=== PATIENT | female | born 2000 | race Caucasian/White ===

== ENCOUNTER 2020-06-02 20:11 | Emergency (ER) | payer MEDICAID, SELFPAY ==
[2020-06-02 20:12] VITALS: BP 146/88; PULSE 103; RESP 14; TEMP 36.7; O2SAT 100; BMI 37.1
--- NOTE | 2020-06-02 20:29 | CT_ITS ---
PROCEDURE: CT ABDOMEN PELVIS W CON CLINICAL INDICATION: abd pain Right lower quadrant pain with nausea and diarrhea COMPARISON: No exams were available for comparison TECHNIQUE: IV Contrast: 75ML Isovue 370 Oral Contrast None Axial images obtained with sagittal and coronal reformats. All CT scans at the facility use one or more dose reduction, viz: automated exposure control, ma/kV adjustment per patient size (including targeted exams where dose is matched to indication, i.e. head), or iterative reconstruction technique. FINDINGS: LOWER THORAX: No acute finding ABDOMEN & PELVIS: Prior cholecystectomy. The liver, spleen, adrenal glands, pancreas and kidneys have an unremarkable appearance. No evidence of appendicitis. There are few small mesenteric and right lower quadrant lymph nodes which are nonspecific. No renal or ureteral calculi. No hydronephrosis. No intestinal obstruction or free air. No pelvic mass or abnormal fluid collection. There is mild asymmetry in the ovaries with the right ovary measuring 4.5 by 2.6 cm containing small follicles. No acute bony findings. There is a sclerotic focus in the intertrochanteric region of the right femur possibly due to a bone island. IMPRESSION: 1. No evidence of appendicitis or obstructing ureteral calculus. 2. Nonspecific small mesenteric and right lower quadrant lymph nodes are present which could be seen with mesenteric adenitis. 3. Mild asymmetric prominence of the right ovary which may be better evaluated with pelvic ultrasound. Dictated by: Bony Redding MD 06/03/2020 06:43 Bony Redding MD in [place] 06/03/2020 06:43
[2020-06-02 20:38] LABS: Microscopic, Urine URINE MICROSCOPIC (MICROSCOPIC)
[2020-06-02 20:44] LABS: Appearance,Urine CLEAR (Clear); Blood, Urine Negative (Negative); Color,Urine YELLOW (Yellow); Glucose,Urine (UA) Negative (Negative); Ketones,Urine Negative (Negative); Leukocyte Esterase,Urine Negative (Negative); Nitrate,Urine Negative (Negative); PH,Urine 5.5 (5.0-8.5); Protein,Urine Negative (Negative); Specific Gravity, Urine >= 1.030 (1.005-1.030); Urobilinogen,Urine 0.2 EU/dl (0.2)
[2020-06-02 20:47] LABS: Basophils # 0.1 K/mm3 (0-0.2); Basophils % 0.4 % (0.1-2.0); Eosinophils # 0.1 K/mm3 (0.0-0.4); Eosinophils % 0.8 % (0.1-12.0); Hematocrit 42.1 % (37.0-47.0); Hemoglobin 13.8 g/dL (12.2-16.2); Lymphocytes # 3.5 K/mm3 (0.7-4.5); Lymphocytes % 28.1 % (10-50); Mean Corpuscular HGB Conc 32.7 g/dL (31.8-35.4); Mean Corpuscular Hemoglobin 27.3 pg (27.0-31.2); Mean Corpuscular Volume 83.7 fl (81-99); Mean Platelet Volume 7.7 fl (7.4-10.4); Monocytes # 0.8 K/mm3 (0.1-1.0); Neutrophils # 8.1 K/mm3 (1.8-7.8); Neutrophils % 64.7 % (37.0-80.0); Platelet Count 337 K/mm3 (142-424); Red Blood Count 5.04 M/mm3 (4.20-5.40); White Blood Count 12.5 K/mm3 (4.8-10.8)
[2020-06-02 20:52] VITALS: PULSE 103; O2SAT 100
[2020-06-02 20:52] LABS: Alanine Aminotransferase 32 U/L (12-78); Albumin Level 4.9 g/dl (3.5-5.0); Albumin/Globulin Ratio 1.2 (1.1-1.8); Alkaline Phosphatase 111 U/L (38-126); Amylase 76 U/L (30-110); Anion Gap 18.2 mEq/L (5-15); Aspartate Amino Transferase 37 U/L (14-36); Bilirubin,Total 0.5 mg/dl (0.2-1.3); Blood Urea Nitrogen 8 mg/dl (7-17); Calcium 9.8 mg/dl (8.4-10.2); Carbon Dioxide 23 mmol/L (22.0-30.0); Chloride 104 mmol/L (98-107); Creatinine Clearance Estimated 209 mL/min (50-200); Estimated Glomerular Filt Rate 106 ml/min (>60); GFR (African American) 128 ML/MIN (>60); Globulin 4.2 g/dL (1.3-3.2); Glucose 87 mg/dl (74-100); Lipase 139 U/L (23-300); Potassium 4.2 mmoL/L (3.5-5.1); Sodium 141 mmol/L (136-145); Total Protein,Serum 9.1 g/dl (6.3-8.2); Urine Pregnancy, HCG Qual. Negative (Negative)
[2020-06-02 20:55] LABS: Bilirubin,Urine Negative (Negative)
[2020-06-02 20:57] LABS: C-Reactive Protein 12.7 mg/L (0-4)
[2020-06-02 21:00] VITALS: BP 109/61; PULSE 104; O2SAT 100
--- NOTE | 2020-06-02 21:02 | HMH.EDNVD ---
ED Disposition Clinical Impression: Abdominal pain Qualifiers: Abdominal location: right lower quadrant Qualified Code(s): R10.31 - Right lower quadrant pain Disposition: Home, Self-Care Condition on Discharge: Good Instructions: DI for Acute Abdominal Pain Additional Instructions: fluids and see pcp for follow up Referrals: Barbara Iglesias PA [Primary Care Provider] - - Critical Care Critical Care Time: No Attestation: On 06/02/20, the high probability of a clinically significant, sudden or life threatening deterioration of the following system(s) required my full and direct attention, intervention and personal management. The time I documented below is in addition to time spent performing reported procedures but includes the following listed in this critical care notation. Medical Decision Making - Medical Records Medical records reviewed: Yes: I reviewed the patient's medical records. - Robert Inquiry Pt receiving controlled substance: No Vital Signs: 06/02/20 20:12 06/02/20 20:52 06/02/20 21:00 Temperature 98.1 F Temperature Source Oral Pulse Rate 103 H 104 H Pulse Rate [Left Radial] 103 H Respiratory Rate 14 Blood Pressure 109/61 L Blood Pressure [Right Arm] 146/88 H Blood Pressure Mean 77 Blood Pressure Mean [Right Arm] 107 Blood Pressure Source Blood Pressure Source [Right Arm] Automatic Cuff Blood Pressure Position Blood Pressure Position [Right Arm] Sitting 02 Sat by Pulse Oximetry 100 100 100 Oxygen Delivery Method Room Air 06/02/20 22:11 Temperature Temperature Source Pulse Rate 95 H Pulse Rate [Left Radial] Respiratory Rate 14 Blood Pressure 102/66 L Blood Pressure [Right Arm] Blood Pressure Mean Blood Pressure Mean [Right Arm] Blood Pressure Source Automatic Cuff Blood Pressure Source [Right Arm] Blood Pressure Position Supine Blood Pressure Position [Right Arm] 02 Sat by Pulse Oximetry 99 Oxygen Delivery Method Room Air - Lab Data Lab results reviewed: Yes: I reviewed the patient's lab results. Lab Results 06/02/20 20:20: Urine Color Yellow, Urine Appearance Clear, Urine pH 5.5, Ur Specific [place] >= 1.030, Urine Protein Negative, Urine Glucose (UA) Negative, Urine Ketones Negative, Urine Blood Negative, Urine Nitrate Negative, Urine Bilirubin Negative, Urine Urobilinogen 0.2, Ur Leukocyte Esterase Negative, Urine WBC Occasional, Ur Squamous Epith Cells 3-5, Urine Bacteria 1+ 06/02/20 20:20: WBC 12.5 H, RBC 5.04, Hgb 13.8, Hct 42.1, MCV 83.7, MCH 27.3, MCHC 32.7, RDW 14.0, Plt Count 337, MPV 7.7, Neut % (Auto) 64.7, Lymph % (Auto) 28.1, Henry % (Auto) 6.0, Eos % (Auto) 0.8, Baso % (Auto) 0.4, Neut # (Auto) 8.1 H, Lymph # (Auto) 3.5, Henry # (Auto) 0.8, Eos # (Auto) 0.1, Baso # (Auto) 0.1, ESR 66 H 06/02/20 20:20: Urine HCG, Qual Negative 06/02/20 20:20: Sodium 141, Potassium 4.2, Chloride 104, Carbon Dioxide 23, Anion Gap 18.2 H, BUN 8, Creatinine 0.70, Estimated Creat Clear 209, Estimated GFR 106, Est GFR ( Amer) 128, Glucose 87, Calcium 9.8, Total Bilirubin 0.5, AST 37 H, ALT 32, Alkaline Phosphatase 111, C-Reactive Protein 12.7 H, Total Protein 9.1 H, Albumin 4.9, Globulin 4.2 H, Albumin/Globulin Ratio 1.2, Amylase 76, Lipase 139, Procalcitonin < 0.030 Result diagrams: 06/02/20 20:20 06/02/20 20:20 Orders (Tests/Meds): ED MEDICATIONS Generic Name Dose Route Start Last Admin Trade Name Freq PRN Reason Stop Dose Admin Sodium Chloride 1,000 mls @ 999 mls/hr 06/02/20 20:30 06/02/20 20:47 Sod Chlor 0.9% 1000ml Bag IV 06/02/20 21:30 999 mls/hr .Q1H1M MEGHA Administration Discontinued Medications Generic Name Dose Route Start Last Admin Trade Name Freq PRN Reason Stop Dose Admin Iopamidol 75 ml 06/02/20 21:20 06/02/20 21:21 Iopamidol-370 (76%);100ml Bottle IV 06/02/20 21:21 75 ml ONCE ONE Administration Ketorolac Tromethamine 30 mg 06/02/20 20:29 06/02/20 20:58 Ketorolac 30mg/Ml Vial IV 06/02
[2020-06-02 21:12] LABS: Procalcitonin < 0.030 ng/mL (0.0-2.0)
[2020-06-02 21:33] LABS: Bacteria,Urine 1+ /lpf; WBC,Urine Occasional #/hpf (0-3)
[2020-06-02 21:49] LABS: Erythrocyte Sedimentation Rate 66 mm/hr (0-20)
[2020-06-02 22:11] VITALS: BP 102/66; PULSE 95; RESP 14; O2SAT 99
[2020-06-02 22:37] VITALS: BP 146/92; PULSE 88; RESP 14; TEMP 36.6; O2SAT 99
== END 2020-06-02 22:49 | disposition home or self-care (01) ==
PROVIDERS: Emergency Provider Emergency Medicine; PCP Physician Assistant
DX: R10.31 Right lower quadrant pain (principal)
CPT/HCPCS: 74177; 80053; 81001; 81025; 82150; 83690; 84145; 85025; 85651; 86140; 96365; 96366; 99283; J2405; Q9967

== ENCOUNTER 2022-03-18 08:24 | Emergency (ER) | payer MEDICAID, SELFPAY ==
--- NOTE | 2022-03-18 08:58 | EXP.UTC ---
Discharge Plan Disposition Patient Disposition: Home, Self-Care Condition: Good Prescriptions Prescriptions: New amoxicillin [amoxicillin] 500 mg tablet 500 mg PO TID 10 Days Qty: 30 0RF sbubulzkhzqacqe-yjprsatqk-WC [Bromfed DM] 2-30-10 mg/5 mL Syrup 5 ml PO Q6H PRN (Reason: Cough) Qty: 240 0RF methylprednisolone 4 mg Tablets,Dose Pack 4 mg PO DIRECTED Qty: 21 0RF Referrals Follow up/Referrals: Provider,Referral, MD [Primary Care Provider] - See instructions Activity Restrictions/Add. Instructions Additional Instructions/Restrictions: Drink plenty of fluids. Take tylenol or ibuprofen for pain or fever. Take the medications as directed. Follow up with your regular doctor. GO TO THE ER FOR ANY WORSENING SYMPTOMS Clinical Impressions Clinical Impression: Strep throat Instructions Patient Instructions: Strep Throat, DI for Strep Throat Discharge ED Provider: Shon Braxton [facility] General Stated complaint: Sore throat Time Seen by Provider: 03/18/22 08:58 History of Present Illness Provider Complaint: She states that she has had a sore throat for the past 2 days. She has had fever and chills also. She denies significant cough and congestion. Related Data Previous Rx's Medication Instructions Recorded amoxicillin 500 mg tablet 500 mg PO TID 10 days #30 tabs 03/18/22 npxmtqejdkdkknv-hwtavwtlbykwlsf-QJ 5 ml PO Q6H PRN Cough #240 mL 03/18/22 2 mg-30 mg-10 mg/5 mL oral syrup (Bromfed DM) methylprednisolone 4 mg tablets in 4 mg PO DIRECTED #21 tabs 03/18/22 a dose pack Allergies Allergy/AdvReac Type Severity Reaction Status Date / Time No Known Allergies Allergy Verified 03/18/22 09:05 [facility] Disclaimer: The information contained in this section may have been updated after the patient was seen, as this information can be updated by other users. Social History Smoking Status: Never smoker alcohol intake: never current occupational status: employed Travel in the last 8 weeks: None ROS Obtained: Yes All systems reviewed & no additional complaints except as documented Constitutional Constitutional: Reports chills and Reports fever(s) Eyes Eyes: Denies eye discharge ENT Ears, Nose, Mouth, and Throat: Reports as per HPI Cardiovascular Cardiovascular: Denies chest pain Respiratory Respiratory: Denies chest congestion and Reports cough Gastrointestinal Gastrointestingal: Reports nausea; Denies abdominal pain, constipation, cramping, diarrhea or vomiting Musculoskeletal Musculoskeletal: Denies arthralgias Integumentary/Breasts Skin/Breast: Denies rash Neurologic Neurologic: Denies paresthesias Physical Exam General General appearance: alert and in no apparent distress Head Head exam: atraumatic, normocephalic and normal inspection Eye Eye exam: Present normal appearance, PERRL and EOMI ENT ENT exam: Present mucous membranes moist and normal external ear exam Expanded ENT Exam TM/Canal exam: Bilateral TM: erythema and bulging Nose exam: Absent sinus tenderness Mouth exam: Present normal external inspection; Absent drooling Teeth exam: Present normal inspection Throat exam: Present tonsillar erythema, tonsillomegaly and tonsillar exudate Neck Neck exam: Present normal inspection, full ROM and trachea midline; Absent tenderness, meningismus or lymphadenopathy Chest Chest inspection: Present normal inspection and symmetric chest wall rise; Absent tenderness Respiratory Respiratory exam: Present normal lung sounds bilaterally; Absent respiratory distress, wheezes or stridor Cardiovascular Cardiovascular exam: Present regular rate and normal rhythm; Absent systolic murmur or diastolic murmur Abdominal Exam Abdominal exam: Present soft and normal bowel sounds; Absent distention, tenderness, guarding, rebound or rigidity Extremities Exam Extremities exam: Present normal inspection and normal capill
[2022-03-18 09:00] VITALS: BP 115/92; PULSE 104; RESP 16; TEMP 37.2; O2SAT 96; BMI 36.8
[2022-03-18 09:06] LABS: UTC Influenza A Antigen Negative (Negative); UTC Strep Screen (Rapid) Positive (Negative)
[2022-03-18 09:07] LABS: UTC Influenza B Antigen Negative (Negative)
[2022-03-18 09:27] VITALS: BP 115/92; PULSE 104; RESP 16; TEMP 37.2
== END 2022-03-18 09:31 | disposition home or self-care (01) ==
PROVIDERS: Emergency Provider Nurse Practitioner Family
DX: J02.0 Streptococcal pharyngitis (principal); J02.9 Acute pharyngitis, unspecified
CPT/HCPCS: 87804; 87880; 99212; G0463

== ENCOUNTER 2024-05-01 18:21 | Emergency (ER) | payer OTHER, SELFPAY ==
[2024-05-01 18:32] VITALS: BP 150/80; PULSE 99; RESP 18; TEMP 36.6; O2SAT 99; BMI 35.0
[2024-05-01 18:44] LABS: Microscopic, Urine URINE MICROSCOPIC (MICROSCOPIC)
[2024-05-01 18:47] LABS: Appearance,Urine CLOUDY (Clear); Blood, Urine 3+ (Negative); Color,Urine RED (Yellow); Glucose,Urine (UA) Negative (Negative); Ketones,Urine TRACE (Negative); Leukocyte Esterase,Urine TRACE (Negative); Nitrate,Urine POSITIVE (Negative); PH,Urine 6.5 (5.0-8.5); Protein,Urine 1+ (Negative); Specific Gravity, Urine 1.025 (1.005-1.030)
--- NOTE | 2024-05-01 18:47 | PC.NURSE ---
ROUNDED ON THE PT. THE PT VOICES THAT SHE DOES NOT NEED ANYTHING AT THIS TIME. CALL LIGHT IS WITHIN REACH OF THE PT.
[2024-05-01 18:49] LABS: Bilirubin,Urine 1+ (Negative)
[2024-05-01 19:02] LABS: RBC,Urine 20-50 #/hpf (0-3)
[2024-05-01 19:03] LABS: Bacteria,Urine 2+ /lpf
[2024-05-01 19:19] LABS: Basophils % 0.2 % (0.1-2.0); Eosinophils # 0.1 K/mm3 (0.0-0.4); Eosinophils % 0.7 % (0.1-12.0); Hematocrit 38.4 % (37.0-47.0); Hemoglobin 12.8 g/dL (12.2-16.2); Lymphocytes # 2.8 K/mm3 (0.7-4.5); Lymphocytes % 33.3 % (10-50); Mean Corpuscular HGB Conc 33.3 g/dL (31.8-35.4); Monocytes # 0.6 K/mm3 (0.1-1.0); Monocytes % 7.1 % (1.7-9.3); Neutrophils # 4.9 K/mm3 (1.8-7.8); Neutrophils % 58.3 % (37.0-80.0); Platelet Count 252 K/mm3 (142-424); Red Blood Count 4.74 M/mm3 (4.20-5.40); Red Cell Distribution Width 13.2 % (11.5-17.5); White Blood Count 8.4 K/mm3 (4.8-10.8)
[2024-05-01 19:25] LABS: Albumin Level 4.6 g/dl (3.5-5.0); Chloride 102 mmol/L (98-107); Potassium 3.4 mmoL/L (3.5-5.1); Sodium 138 mmol/L (136-145)
[2024-05-01 19:28] LABS: Alanine Aminotransferase 62 U/L (12-78); Albumin/Globulin Ratio 1.3 (1.1-1.8); Alkaline Phosphatase 57 U/L (38-126); Anion Gap 14.4 mEq/L (5-15); Aspartate Amino Transferase 42 U/L (14-36); Bilirubin,Total 0.2 mg/dl (0.2-1.3); Blood Urea Nitrogen 6 mg/dl (7-17); Calcium 9.4 mg/dl (8.4-10.2); Carbon Dioxide 25 mmol/L (22.0-30.0); Creatinine Clearance Estimated 260 mL/min (50-200); Estimated Glomerular Filt Rate 150 ml/min (>60); GFR (African American) 182 ML/MIN (>60); Globulin 3.5 g/dL (1.3-3.2); Glucose 95 mg/dl (74-100); Total Protein,Serum 8.1 g/dl (6.3-8.2)
[2024-05-01] MEDS: CEFDINIR 300MG CAPSULE 300 MG PO (19:32)
--- NOTE | 2024-05-01 20:08 | HMH.EDGENADL ---
Discharge Plan Disposition Patient Disposition: Home, Self-Care Prescriptions Prescriptions: New cefdinir 300 mg capsule 300 mg PO BID 7 Days Qty: 14 0RF No Action amoxicillin [amoxicillin] 500 mg tablet 500 mg PO TID 10 Days Qty: 30 0RF fuihpjrqybuuwzd-atqdumklq-BD [Bromfed DM] 2-30-10 mg/5 mL Syrup 5 ml PO Q6H PRN (Reason: Cough) Qty: 240 0RF methylprednisolone 4 mg Tablets,Dose Pack 4 mg PO DIRECTED Qty: 21 0RF Referrals Follow up/Referrals: Barbara Martinez PA [Primary Care Provider] - See instructions Activity Restrictions/Add. Instructions Additional Instructions/Restrictions: Follow-up with your MINE ENGINEERING MANAGER regarding this visit to the emergency department. Cefdinir twice daily for 7 days. Call your family doctor to establish care for this visit to the emergency department and schedule follow-up within 48 hours to ensure improvement. If you have any worsening of your condition or any other concerning signs or symptoms, return to the emergency department or your primary care doctor for further evaluation. hCG 105,330 Clinical Impressions Clinical Impression: Subchorionic hemorrhage Qualifiers: Trimester: first trimester Qualified Code(s): O20.8 - Other hemorrhage in early Print Language Print Language: Mexican Discharge ED Provider: Naun Morgan General Adult HPI General Chief complaint: Vaginal Bleeding Stated complaint: 11 wks pregang , vaginal bleeding Time Seen by Provider: 05/01/24 18:37 Mode of Arrival: Ambulatory Source of Information: Patient Limitations: No Limitations Description of Symptoms (Recalled from ER Triage Doc. by RN): Pt states she is 11 weeks , and approx 1 hour ago she felt a gush and is now having slight vaginal bleeding. History of Present Illness HPI narrative: Please note that above description of symptoms, in this electronic medical record under categorization of recalled from ER triage doctor by RN are reflective of an initial nursing assessment, however, is not reflective of my full history and physical exam that was personally taken and clarified. Consequentially, this preceding description of symptoms, which may include the patient's categorized chief complaint in the EMR, do not reflect my personal clinical impression, and the ultimate description of history of present illness and patient stated complaints should be deferred to this section of the note. Unless stated otherwise or congruent with this section of the note, additional signs, symptoms, or incongruence should be interpreted as inaccurate with my clinical impression. Related Data Previous Rx's ?Medication ?Instructions ?Recorded amoxicillin 500 mg tablet 500 mg PO TID 10 days #30 tabs 03/18/22 msmnlysorolcmnj-tamxvqtdekxvsjg-YX 5 ml PO Q6H PRN Cough #240 mL 03/18/22 2 mg-30 mg-10 mg/5 mL oral syrup (Bromfed DM) methylprednisolone 4 mg tablets in 4 mg PO DIRECTED #21 tabs 03/18/22 a dose pack cefdinir 300 mg capsule 300 mg PO BID 7 days #14 caps 05/01/24 Allergies Allergy/AdvReac Type Severity Reaction Status Date / Time No Known Allergies Allergy Verified 03/18/22 09:05 [facility] Disclaimer: The information contained in this section may have been updated after the patient was seen, as this information can be updated by other users. Social History (Updated 03/19/22 @ 14:10 by Shon Braxton APRN) Smoking Status: Never smoker alcohol intake: never current occupational status: employed Travel in the last 8 weeks: None Have you lived/traveled outside [place] in past 30 days?: No Contact w/someone who lives/traveled outside [place] past 30 days?: No Exposure to someone with infectious disease in past 14 days?: No Do you have a fever (greater than 100.4 F or 38 C)?: No Have you tested positive for COVID-19: No Exposed to someone with COVID-19 in past 14 days?: No Do you have a sore throat?: No Do you have a cough?: No Do you have any weakness?: No Do you have any diarrhea?: No Are you experiencing any unusual bleeding?: No Do you have any muscle aches/pain?: No Do you have any abdominal pain?: No Are you experiencing loss of taste or smell?: No Other Medical History Have you received the Flu Vaccine for this season: Yes Have you received the Pneumonia Vaccine: No ROS Obtained: Yes All systems reviewed & no additional complaints except as documented Physical Exam General General appearance: alert Head Head exam: atraumatic and normocephalic Eye Eye exam: Present normal appearance, PERRL and EOMI Neck Neck exam: Present normal inspection, full ROM and trachea midline Respiratory Respiratory exam: Absent respiratory distress, wheezes, stridor, accessory muscle use or prolonged expiratory phase Cardiovascular Cardiovascular exam: Present other (Pulses equal symmetric in upper and lower extremities) Abdominal Exam Abdominal exam: Present soft; Absent distention, tenderness or pulsatile mass Extremities Exam Extremities exam: Absent edema Neurological Exam Neurological exam: Present alert, oriented X3 and CN II-XII intact; Absent motor sensory deficit Skin Skin exam: Present warm and dry; Absent diaphoresis or erythema Medical Decision Making Medical Records Medical records reviewed: Yes I reviewed the patient's medical records. Screening: Per USPSTF and CDC recommendations, given the prevalence of disease in our region, it is our hospital?s policy to screen for HIV and viral Hepatitis for all patients aged 18 and over and those with ongoing risk factors. Robert Inquiry Pt receiving controlled substance: No Robert was queried for this patient: No Vital Signs: 05/01/24 18:32 Temperature 97.9 F Temperature Source Oral Pulse Rate [Right] 99 H Respiratory Rate 18 Blood Pressure [Right Arm] 150/80 H Blood Pressure Mean [Right Arm] 103 Blood Pressure Position [Right Arm] Sitting 02 Sat by Pulse Oximetry 99 Oxygen Delivery Method Room Air Lab Data Lab Results 05/01/24 18:33: Urine Color Red, Urine Appearance Cloudy, Urine pH 6.5, Ur Specific [place] 1.025, Urine Protein 1+ A, Urine Glucose (UA) Negative, Urine Ketones Trace, Urine Blood 3+ A, Urine Nitrate Positive A, Urine Bilirubin 1+ A, Urine Urobilinogen 1.0, Ur Leukocyte Esterase Trace, Urine RBC 20-50, Urine WBC 3-5, Ur Squamous Epith Cells 3-5, Urine Bacteria 2+ 05/01/24 19:10: WBC 8.4, RBC 4.74, Hgb 12.8, Hct 38.4, MCV 81.0, MCH 27.0, MCHC 33.3, RDW 13.2, Plt Count 252, MPV 10.0, Neut % (Auto) 58.3, Lymph % (Auto) 33.3, [place] % (Auto) 7.1, Eos % (Auto) 0.7, Baso % (Auto) 0.2, Neut # (Auto) 4.9, Lymph # (Auto) 2.8, [place] # (Auto) 0.6, Eos # (Auto) 0.1, Baso # (Auto) 0.0, Sodium 138, Potassium 3.4 L, Chloride 102, Carbon Dioxide 25, Anion Gap 14.4, BUN 6 L, Creatinine 0.50 L, Estimated Creat Clear 260, Estimated GFR 150, Est GFR ( Amer) 182, Glucose 95, Calcium 9.4, Total Bilirubin 0.2, AST 42 H, ALT 62, Alkaline Phosphatase 57, Total Protein 8.1, Albumin 4.6, Globulin 3.5 H, Albumin/Globulin Ratio 1.3, HCG, Quant 232282 H, Blood Type A Positive, Antibody Screen Negative 05/01/24 19:10 05/01/24 19:10 Orders (Tests/Meds): ED MEDICATIONS Discontinued Medications Generic Name Dose Route Start Last Admin Trade Name Freq PRN Reason Stop Dose Admin Cefdinir 300 mg 05/01/24 18:52 05/01/24 19:32 Cefdinir 300mg Capsule PO 05/01/24 18:53 300 mg ONCE ONE Administration ORDERS Category Date Time Status Type and Screen Stat BBK 05/01/24 19:10 Completed POCUS Point of Care (ER Only) Stat Exams 05/01/24 18:37 Completed CBC w/Auto Diff [Complete Blood Count Auto Diff] Stat Lab 05/01/24 19:10 Completed CMP [Comprehensive Metabolic Panel] Stat Lab 05/01/24 19:10 Completed HCG,Quantitative Stat Lab 05/01/24 19:10 Completed Urinalysis and Microscopic Stat Lab 05/01/24 18:33 Completed Urine Culture Stat Micro 05/01/24 18:33 Received Medical Decision Narrative: 23-year-old female who is 11 weeks today presenting with vaginal bleeding. Patient states that she felt a gush of blood yesterday, 2/ in the PM, wiped, it was scant pink spotting. Since that time, she has had a couple of episodes of this. Called her MINE ENGINEERING MANAGER who recommended she come to the emergency department. No cramping, loss of fluid. Patient not feeling baby move of course, so does not know about movements no urinary symptoms.. History was obtained via conversation with patient. On arrival, patient hemodynamically stable, alert, oriented x4, appropriate, GCS 15, moving all extremities spontaneously, pupils equal and reactive to light. Full physical exam performed and significant for very well-appearing patient no acute distress. Abdomen soft, nontender, nondistended. Nontachycardic. Differential includes miscarriage, subchorionic hemorrhage, abruption, UTI, heterotopic , among others. Patient placed on continuous cardiac monitoring and continuous pulse ox with initial blood pressure 150/80, heart rate 99, saturation 100% on room air. Workup independently interpreted and significant for a positive. Nonactionable CBC or chemistry. Patient's urinalysis with concern for UTI. hCG 105, 330. On independent interpretation of imaging, patient has small subchorionic hemorrhage. Good movements, heart rate in the 170s. See radiology read for full review of final results. Given patient presentation, workup, history, this most likely represents subchorionic hemorrhage and UTI. Cefdinir given. Rest sent to pharmacy. Recommend she follow-up with her MINE ENGINEERING MANAGER, she voiced her understanding. Because patient at baseline without signs or symptoms of clinical decompensation, deemed appropriate for discharge. Results were relayed to patient who voiced understanding and were agreeable to outpatient management and follow up. I discussed my clinical impression with patient and answered all questions. At this time, the evidence for any other entities in the differential is insufficient to warrant any further testing or ED observation. This was explained as well. Advisory was given that persistent or worsening symptoms require further evaluation. I confirmed the understanding of this discussion. Rn Visiting disclaimer Much of this encounter note is an electronic sql server developer spoken language to printed text. Electronic sql server developer of the spoken language may permit errors. Although I have reviewed the note, some errors may still exist. Procedures Limited Ultrasound Indication:: Limited OB ultrasound Indication: , vaginal bleeding Identified structures: Pelvic viscera Findings: Uterus: Definitive IUP with FHR in the 170s Right adnexa: Large ovarian cyst Left adnexa: -Normal Cul de sac: -free fluid absent Impression: -IUP: Present with fhr in the 170s -Ectopic : Absent -Free fluid: Absent -Cervix closed -Small subchorionic hemorrhage Images were saved to permanent archive The study was technically adequate CPT Transabdominal: 50927-86 This study was performed by me, and I personally interpreted all images/videos. Based on my clinical judgement, these images were adequate and did not necessitate further imaging Critical Care Critical Care Time Critical Care Time: No
[2024-05-01 20:54] LABS: HCG,Quantitative 105330 mIU/ml (0-5.42)
[2024-05-01 21:21] VITALS: BP 148/76; PULSE 98; RESP 20; TEMP 36.9; O2SAT 98
== END 2024-05-01 21:23 | disposition home or self-care (01) ==
PROVIDERS: Emergency Provider Emergency Medicine; PCP Physician Assistant
DX: O20.8 Other hemorrhage in early pregnancy (principal); Z3A.11 11 weeks gestation of pregnancy
CPT/HCPCS: 36415; 80053; 81001; 84702; 85025; 86850; 87086; 99283